=== PATIENT | male | born 1995 | race American Indian/Alaskan Native ===

== ENCOUNTER 2019-08-15 17:18 | Emergency (ER) | payer SELFPAY ==
[2019-08-15] MEDS ORDERED: SODIUM CHLORIDE 0.9% 1000 ML 1,000 ML IV ONE (17:19)
--- NOTE | 2019-08-15 17:22 | Event Note ---
ED Screening Note ED Screening Note: PT COMES TO ER CO CHEST PAIN; LOOKS TO BE IN DISTRESS OFF AND ON FOR 2 WEEKS ONE DAY HE CALLED EMS THEY CAME AND SAID HE WAS FINE TODAY AFTER ETOH AND THC IT STARTED AGAIN, HR WENT UP AND HE IS ANXIOUS PMH NONE PSH NONE RX NONE POS CIG/ETOH DENIES COCAINE This initial assessment/diagnostic orders/clinical plan/treatment(s) is/are subject to change based on patients health status, clinical progression and re- assessment by fellow clinical providers in the ED. Further treatment and workup at subsequent clinical providers discretion. Patient/guardian urged not to elope from the ED as their condition may be serious if not clinically assessed and managed. Initial orders include: EKG [facility]
[2019-08-15] MEDS ORDERED: LORazepam 2 MG/ML VIAL IV ONE (17:46)
--- NOTE | 2019-08-15 18:14 | Emergency Department Report ---
ED General Adult HPI - General Chief complaint: Chest Pain Stated complaint: CHEST PAIN Time Seen by Provider: 08/15/19 17:19 Source: patient Mode of arrival: Ambulatory Limitations: No Limitations - History of Present Illness Initial comments: Patient is a 24-year-old F [place] male who is presenting with palpitations. Patient states he started having palpitations after drinking approximately 48 ounces of beer and smoking marijuana. He states he has a sense of doom and panic and was having chest pain. Patient states that something similar happened 2 weeks ago while also drinking and using marijuana but the paramedics stated that he was okay and he stayed home. Severity scale (0 -10): 6 - Related Data Allergies Allergy/AdvReac Type Severity Reaction Status Date / Time No Known Allergies Allergy Verified 08/15/19 17:29 ED Review of Systems ROS: Stated complaint: CHEST PAIN Other details as noted in HPI Comment: All other systems reviewed and negative ED Physical Exam - General Limitations: No Limitations General appearance: alert, in no apparent distress - Head Head exam: Present: atraumatic, normocephalic - Eye Eye exam: Present: normal appearance, PERRL, EOMI - ENT ENT exam: Present: normal orophraynx, mucous membranes moist - Neck Neck exam: Present: normal inspection - Respiratory Respiratory exam: Present: normal lung sounds bilaterally. Absent: respiratory distress - Cardiovascular Cardiovascular Exam: Present: normal rhythm, tachycardia. Absent: systolic murmur, diastolic murmur, rubs, gallop - GI/Abdominal GI/Abdominal exam: Present: soft, normal bowel sounds - Rectal Rectal exam: Present: deferred - Extremities Exam Extremities exam: Present: normal inspection - Back Exam Back exam: Present: normal inspection - Neurological Exam Neurological exam: Present: alert, oriented X3 - Psychiatric Psychiatric exam: Present: normal affect, normal mood - Skin Skin exam: Present: warm, dry, intact, normal color. Absent: rash ED Course Vital Signs 08/15/19 17:28 Temperature 97.7 F Pulse Rate 148 H Respiratory 20 Rate Blood Pressure 129/68 [Right] O2 Sat by Pulse 100 Oximetry ED Medical Decision Making - EKG Data -: EKG Interpreted by Me EKG shows normal: sinus rhythm, axis, intervals, QRS complexes, ST-T waves Rate: tachycardia - Medical Decision Making At the time of my history and physical the patient stated that he was coming down. Patient encouraged to cease using marijuana as this likely is the cause of his anxiety and tachycardia. Patient has no emergent condition at this time and will be urged to follow-up with community resources as necessary. Critical care attestation.: If time is entered above; I have spent that time in minutes in the direct care of this critically ill patient, excluding procedure time. ED Disposition Clinical Impression: Marijuana abuse, Anxiety reaction, Tachycardia Disposition: MED SCREENING EXAM-LEFT Is pt being admited?: No Does the pt Need Aspirin: No Condition: Stable Instructions: Anxiety (ED), Cannabis Abuse (ED) Time of Disposition: 18:13
--- NOTE | 2019-08-15 18:35 | XRay Report ---
CHEST 1 VIEW INDICATION: CP SOB. COMPARISON: None. FINDINGS: Support devices: None. Heart: Within normal limits. Lungs/Pleura: No acute air space or interstitial disease. Lung volumes are mildly diminished. Additional findings: None. IMPRESSION: Mildly diminished lung volumes. Signer Name: Rosendo Connor MD Signed: 08/15/2019 6:31 PM Workstation Name: [id number]
[2019-08-15 18:52] VITALS: BP 152/72
== END 2019-08-15 18:32 | disposition left against medical advice (07) ==
LOC: ED 17:18
DX: F41.1 Generalized anxiety disorder (principal); F12.10 Cannabis abuse, uncomplicated; R00.0 Tachycardia, unspecified
CPT/HCPCS: 71045; 93005; 93010